=== PATIENT | male | born 1950 | race Caucasian/White ===

== ENCOUNTER 2016-03-09 08:11 | Day surgery (SDC) | payer OTHER ==
[~2016-03-09] VITALS: Ht 177.8 cm; Wt 92.0 kg
[~2016-03-09 08:11] MED LIST: ASPIRIN325 MG PO; ATENOLOL25 MG PO; ATORVASTATIN CA40 MG PO; Ascorbic Acid,Ester- PO; BACTRIM,SEPT1 TABLET PO; DAILY VITAMIN1 EAC8 PO; Dulcolax PO; ESTER-C 1,0001 EACH PO; Ecotrin PO; FOLIC ACID1 MG PO; Folvite PO; GLUCOTROL XL10 MG PO; K-DUR20 MEQ PO; K-Dur PO; LIPITOR20 MG PO; LIPITOR40 MG PO; LISINOPRIL20 MG PO; LITE COAT ASPI325 M1 PO; LOFIBRA,TRIGLI160 MG; LOPRESSOR50 MG PO; Lipitor PO; Lopressor PO; METOPROLOL TART50 MG PO; MICROZIDE12.5 M1 PO; NEURONTIN100 MG PO; NICOTINE PATCH1 EAC2 TD; PERCOCET 5/31 TABLET PO; PLAVIX75 MG PO; PROBIOTIC1 EAC1 PO; Percocet 5/325,Endoc PO; Plavix PO; RIMACTANE,RIFA300 MG PO; SIMVASTATIN80 MG; TENORMIN25 MG PO; THERAGRAN1 TABLET PO; TRAMADOL HCL50 MG PO; Tenormin PO; Theragran PO; VITAMIN B-125000 MC1 PO; VITAMIN D1000 UNIT PO; VITAMIN D2000 UNIT PO; Vancomycin IV; Zocor PO
[2016-03-09 08:56] LABS: POINT-OF-CARE METER ID UU14174212
[2016-03-09 08:57] VITALS: BP 119/61
[2016-03-09 10:15] LABS: METH RESISTANT S AUREUS PCR NEGATIVE (NEGATIVE)
[2016-03-09 10:17] LABS: PROBE CHECK PASS; SPECIMEN PROCESSING CONTROL PASS
[2016-03-09 14:50] VITALS: BP 110/58
[2016-03-09 15:50] VITALS: BP 130/64
[2016-03-09 16:30] VITALS: BP 141/65
== END 2016-03-09 16:48 | disposition home or self-care (01) ==
LOC: SDC 08:11
PROVIDERS: Surgery
DX: K43.2 Incisional hernia without obstruction or gangrene (principal); K66.0 Peritoneal adhesions (postprocedural) (postinfection); I10 Essential (primary) hypertension; E11.9 Type 2 diabetes mellitus without complications; F17.200 Nicotine dependence, unspecified, uncomplicated; K21.9 Gastro-esophageal reflux disease without esophagitis; J45.909 Unspecified asthma, uncomplicated; Z86.73 Personal history of transient ischemic attack (TIA), and cerebral infarction without residual deficits
CPT/HCPCS: 82948; 87641; C1781; J0690; J1170; J1885; J2405; J2710; J3010

== ENCOUNTER → 2016-07-13 | Outpatient (CLI) | payer MEDICARE, OTHER | END | disposition home or self-care (01) | LOC: CDC 12:56 | DX: I45.9 Conduction disorder, unspecified (principal); R94.31 Abnormal electrocardiogram [ECG] [EKG]; D49.4 Neoplasm of unspecified behavior of bladder | CPT/HCPCS: 93000 ==

== ENCOUNTER 2016-08-02 07:15 | Emergency (ER) | payer OTHER ==
[~2016-08-02] VITALS: Ht 177.8 cm; Wt 92.4 kg
[2016-08-02 08:19] LABS: HEMATOCRIT 47.4 % (38.0-50.0); MCH 29.6 PG (29.0-34.0); MCHC 32.5 G/DL (30.0-36.0); MCV 91.2 FL (86-99); MEAN PLAT.VOLUME 10.5 uM^3 (9.0-12.4); PLATELET COUNT 174 K/uL (156-360); RBC DIS.WIDTH-CV 13.8 % (11.8-14.6); RBC DIS.WIDTH-SD 46.5 % (39-53); WHITE BLOOD COUNT 7.9 K/uL (4.1-10.2)
[2016-08-02 08:35] LABS: ADD MIUA? YES; BILIRUBIN NEGATIVE; BLOOD LARGE; COLOR RED ((YELLOW)); GLUCOSE (STRIP) NEGATIVE; KETONES NEGATIVE; LEUKOCYTES TRACE; NITRITE NEGATIVE; PROTEIN (STRIP) 100; UROBILINOGEN 0.2 MG/DL (0.2-1.0)
[2016-08-02 08:37] LABS: RED BLOOD CELLS TNTC /HPF (0-5); UCUL ADDED? YES
[2016-08-02 08:55] LABS: ANION GAP 8 MEQ/L (2-14); CHLORIDE 102 MEQ/L (99-109); GFR ESTIMATE (CALCULATED) > 59 mL/min/; GLUCOSE 141 mg/dL (70-99); POTASSIUM 3.9 MEQ/L (3.7-5.4); SAMPLE HEMOLYSIS CHECK 2; SAMPLE ICTERIC CHECK 0; SAMPLE LIPEMIA CHECK 0; SODIUM 140 MEQ/L (136-147); UREA NITROGEN (BUN) 17 mg/dL (9-23)
[2016-08-02 10:47] VITALS: BP 168/87
[2016-08-08] MEDS ORDERED: VITAMIN E400 UNIT PO (16:37)
[2016-08-08] MEDS ORDERED: NEURONTIN300 MG PO (16:37)
[2016-08-08] MEDS ORDERED: LIPITOR10 MG PO (16:37)
== END 2016-08-02 10:48 | disposition home or self-care (01) ==
LOC: EME 07:15
PROVIDERS: Emergency Medicine
DX: R33.9 Retention of urine, unspecified (principal); R31.0 Gross hematuria; Z98.890 Other specified postprocedural states; Z85.51 Personal history of malignant neoplasm of bladder; Z79.02 Long term (current) use of antithrombotics/antiplatelets; Z79.82 Long term (current) use of aspirin; Z87.442 Personal history of urinary calculi; I10 Essential (primary) hypertension; Z95.1 Presence of aortocoronary bypass graft; F17.200 Nicotine dependence, unspecified, uncomplicated
CPT/HCPCS: 80048; 81003; 85027; 87086; 99281; 99284

== ENCOUNTER 2016-08-06 09:49 | Emergency (ER) | payer OTHER ==
[~2016-08-06] VITALS: Ht 177.8 cm; Wt 91.8 kg
[2016-08-06 12:14] LABS: HEMATOCRIT 46.7 % (38.0-50.0); MCH 29.9 PG (29.0-34.0); MCHC 32.5 G/DL (30.0-36.0); MCV 91.7 FL (86-99); MEAN PLAT.VOLUME 10.6 uM^3 (9.0-12.4); PLATELET COUNT 214 K/uL (156-360); RBC DIS.WIDTH-CV 13.8 % (11.8-14.6); RBC DIS.WIDTH-SD 46.9 % (39-53); RED BLOOD COUNT 5.09 M/uL (4.00-5.50); WHITE BLOOD COUNT 9.4 K/uL (4.1-10.2)
[2016-08-06 12:27] LABS: PROTHROMBIN TIME 10.4 (9.2-11.2)
[2016-08-06 12:50] LABS: ANION GAP 7 MEQ/L (2-14); CHLORIDE 102 MEQ/L (99-109); GFR ESTIMATE (CALCULATED) 59 mL/min/; GLUCOSE 180 mg/dL (70-99); POTASSIUM 4.5 MEQ/L (3.7-5.4); SAMPLE HEMOLYSIS CHECK 0; SAMPLE ICTERIC CHECK 0; SAMPLE LIPEMIA CHECK 0; SODIUM 139 MEQ/L (136-147); UREA NITROGEN (BUN) 18 mg/dL (9-23)
[2016-08-06 13:49] VITALS: BP 133/73
[2016-08-08] MEDS ORDERED: VITAMIN E400 UNIT PO (16:37)
[2016-08-08] MEDS ORDERED: LIPITOR10 MG PO (16:37)
[2016-08-08] MEDS ORDERED: NEURONTIN300 MG PO (16:37)
== END 2016-08-06 14:30 | disposition home or self-care (01) ==
LOC: EME 09:49
PROVIDERS: Emergency Medicine
DX: R31.9 Hematuria, unspecified (principal); Z85.51 Personal history of malignant neoplasm of bladder; Z87.442 Personal history of urinary calculi; I25.2 Old myocardial infarction; K21.9 Gastro-esophageal reflux disease without esophagitis; Z91.040 Latex allergy status; F17.200 Nicotine dependence, unspecified, uncomplicated; Z95.1 Presence of aortocoronary bypass graft
CPT/HCPCS: 80048; 85027; 85610; 85730; 99281; 99284

== ENCOUNTER 2016-08-06 17:54 | Emergency (ER) | payer OTHER ==
[~2016-08-06] VITALS: Ht 177.8 cm; Wt 91.8 kg
[2016-08-06 19:21] VITALS: BP 130/89
[2016-08-08] MEDS ORDERED: NEURONTIN300 MG PO (16:37)
[2016-08-08] MEDS ORDERED: LIPITOR10 MG PO (16:37)
[2016-08-08] MEDS ORDERED: VITAMIN E400 UNIT PO (16:37)
== END 2016-08-06 19:36 | disposition home or self-care (01) ==
LOC: EME 17:54
PROC: 0T9B70Z Drainage of Bladder with Drainage Device, Via Natural or Artificial Opening (ICD-10-PCS; principal; 2016-08-06)
DX: Z46.6 Encounter for fitting and adjustment of urinary device (principal); R10.30 Lower abdominal pain, unspecified; K21.9 Gastro-esophageal reflux disease without esophagitis; I25.2 Old myocardial infarction; Z87.442 Personal history of urinary calculi; Z95.1 Presence of aortocoronary bypass graft; F17.200 Nicotine dependence, unspecified, uncomplicated; Z79.82 Long term (current) use of aspirin
CPT/HCPCS: 99281; 99284